=== PATIENT | female | born 1995 | race American Indian/Alaskan Native ===

== ENCOUNTER 2021-10-05 13:02 | Emergency (ER) | payer OTHER ==
[2021-10-05 16:17] VITALS: BP 134/71
[2021-10-05] MEDS ORDERED: dexAMETHasone 20 MG/5 ML VIAL IM ONE (20:51)
[2021-10-05] MEDS ORDERED: diazePAM 5 MG TAB PO ONE (20:51)
[2021-10-05] MEDS ORDERED: KETOROLAC 30 MG/1 ML INJ IM ONE (20:51)
--- NOTE | 2021-10-05 21:01 | Emergency Department Report ---
ED Neck Pain/Injury HPI - General Chief Complaint: Neck Pain/Injury Stated Complaint: MUSCLE SPASM Mode of arrival: Ambulatory Limitations: No Limitations - History of Present Illness Initial Comments: Patient is a 26-year-old -[place] female with no past medical history presents to the ED with complaint of acute onset persistent nontraumatic right lateral neck pain after sleeping on one side of her neck overnight 12 hours ago. Patient states that the pain has been constant and persistent and especially worse with any active range of motion of the neck. Patient denies fall, traumatic injury, headache, dysphagia, dysphonia, shortness of breath, chest pain, numbness and tingling or weakness of upper and lower extremities bilaterally or heavy lifting. MD Complaint: neck pain -: Sudden, hour(s) (12) Place: home Radiation: right lateral Severity: severe Severity scale (0 -10): 7 Quality: sharp, aching Consistency: constant Improves With: none Worsens With: movement of neck Context: turning/bending, unknown Associated Symptoms: none. denies: headache, fever, numbness, tingling, weakn ess, vertigo, difficulty walking, swollen glands, difficulty swallowing, nausea, vomiting Treatments Prior to Arrival: none - Related Data Previous Rx's Medication Instructions Recorded Last Taken Type Baclofen 20 mg PO QHS PRN #20 tab 10/05/21 Unknown Rx Naproxen 500 mg PO Q12H PRN #30 tab 10/05/21 Unknown Rx predniSONE [Deltasone] 40 mg PO QDAY #10 tab 10/05/21 Unknown Rx Allergies Allergy/AdvReac Type Severity Reaction Status Date / Time bendadryl Allergy Shortness Uncoded 10/05/21 16:14 of Breath ED Review of Systems ROS: Stated complaint: MUSCLE SPASM Other details as noted in HPI Constitutional: denies: chills, fever Eyes: denies: eye pain, eye discharge, vision change ENT: denies: ear pain, throat pain Respiratory: denies: cough, shortness of breath, wheezing Cardiovascular: denies: chest pain, palpitations Endocrine: no symptoms reported Gastrointestinal: denies: abdominal pain, nausea, vomiting, diarrhea Genitourinary: denies: urgency, dysuria, discharge Musculoskeletal: arthralgia (neck pain). denies: back pain, joint swelling Skin: denies: rash, lesions Neurological: denies: headache, weakness, paresthesias Psychiatric: denies: anxiety, depression Hematological/Lymphatic: denies: easy bleeding, easy bruising ED Past Medical Hx - Medications Home Medications: Home Medications Medication Instructions Recorded Confirmed Last Taken Type Baclofen 20 mg PO QHS PRN #20 tab 10/05/21 Unknown Rx Naproxen 500 mg PO Q12H PRN #30 tab 10/05/21 Unknown Rx predniSONE [Deltasone] 40 mg PO QDAY #10 tab 10/05/21 Unknown Rx ED Physical Exam - General Limitations: No Limitations General appearance: alert, in no apparent distress - Head Head exam: Present: atraumatic, normocephalic, normal inspection - Eye Eye exam: Present: normal appearance, PERRL, EOMI Pupils: Present: normal accommodation - ENT ENT exam: Present: normal exam, normal orophraynx, mucous membranes moist, TM's normal bilaterally, normal external ear exam - Neck Neck exam: Present: normal inspection, tenderness (Palpable right lateral cervical paraspinal musculoskeletal tenderness), full ROM, other (No midline tenderness). Absent: meningismus, lymphadenopathy, thyromegaly - Respiratory Respiratory exam: Present: normal lung sounds bilaterally. Absent: respiratory distress, wheezes, rales, chest wall tenderness, accessory muscle use - Cardiovascular Cardiovascular Exam: Present: regular rate, normal rhythm, normal heart sounds. Absent: systolic murmur, diastolic murmur, rubs, gallop - GI/Abdominal GI/Abdominal exam: Present: soft, normal bowel sounds. Absent: tenderness, guarding, rebound, hyperactive bowel sounds, hypoactive bowel sounds, organomegaly - Extremities Exam Extremities exam: Present: normal inspection, full ROM, normal capillary refill. Absent: tenderness - Back Exam Back exam: Present: normal inspection, full ROM. Absent: tenderness, CVA tenderness (R), CVA tenderness (L), muscle spasm, paraspinal tenderness, vertebral tenderness - Neurological Exam Neurological exam: Present: alert, oriented X3, CN II-XII intact, normal gait, reflexes normal - Psychiatric Psychiatric exam: Present: normal affect, normal mood - Skin Skin exam: Present: warm, dry, intact, normal color. Absent: rash ED Course Vital Signs 10/05/21 16:15 Temperature 98.6 F Pulse Rate 67 Respiratory 18 Rate Blood Pressure 134/71 [Right] O2 Sat by Pulse 100 Oximetry ED Medical Decision Making - Medical Decision Making This is a 26-year-old -[place] female with no past medical history presents to the ED with complaint of acute onset persistent nontraumatic right lateral neck pain after sleeping on one side of her neck overnight 12 hours ago. Patient states that the pain has been constant and persistent and especially worse with any active range of motion of the neck. In the ED, patient is alert and oriented x3 and is not in any distress. Patient was treated for pain in the ED. On reevaluation, patient's pain is well controlled medication. Patient was discharged home on pain medications and muscle relaxants and advised to follow-up with her primary care physician in 5 to 7 days for reevaluation or return to the ED immediately if symptoms get worse. - Differential Diagnosis Cervical sprain; cervical muscle strain; torticollis; Critical care attestation.: If time is entered above; I have spent that time in minutes in the direct care of this critically ill patient, excluding procedure time. ED Disposition Clinical Impression: Cervical paraspinal muscle spasm, Acute torticollis Cervical muscle strain Qualifiers: Encounter type: initial encounter Qualified Code(s): S16.1XXA - Strain of muscle, fascia and tendon at neck level, initial encounter Disposition: 01 HOME / SELF CARE / HOMELESS Is pt being admited?: No Does the pt Need Aspirin: No Condition: Stable Instructions: Muscle Cramps and Spasms, [id number], Cervical Strain and Sprain Rehab-SportsMed, Acute Torticollis, Adult Additional Instructions: Your symptoms are likely musculoskeletal, therefore take medications as needed for pain with food, drink plenty of fluids and follow-up with your primary care physician in 7 to 10 days for reevaluation. Return to the ED immediately if symptoms get worse. Prescriptions: Baclofen 20 mg PO QHS PRN #20 tab PRN Reason: Muscle Spasm predniSONE [Deltasone] 40 mg PO QDAY #10 tab Naproxen 500 mg PO Q12H PRN #30 tab PRN Reason: Pain , Severe (7-10) Referrals: [facility] [Provider Group] - 7-10 days Time of Disposition: 22:07 Print Language: DOMINICAN
== END 2021-10-05 22:23 | disposition home or self-care (01) ==
LOC: ED 13:02
DX: S16.1XXA Strain of muscle, fascia and tendon at neck level, initial encounter (principal); M43.6 Torticollis; Z88.1 Allergy status to other antibiotic agents; Z79.899 Other long term (current) drug therapy; X58.XXXA Exposure to other specified factors, initial encounter; Y93.89 Activity, other specified; Y92.89 Other specified places as the place of occurrence of the external cause; Y99.8 Other external cause status
CPT/HCPCS: 96372; 99282; J1100; J1885